=== PATIENT | male | born 1940 | race Caucasian/White ===

== ENCOUNTER → 2018-08-13 | Outpatient (CLI) | payer OTHER ==
[~2018-08-13] MED LIST: CARDIZEM CD240 MG PO; COUMADIN 5 MG TA5 M1 PO
--- NOTE | 2018-08-13 14:39 | 2DMMODE ---
[facility] [address] [place] [address] 2 D/M-MODE ECHOCARDIOGRAM Name: CARISSAEVERETTE ANANDUR Room #: REG [facility]#: [id number] ������������� Admission: 08/13/18 ������������� Attend Phys: Xiang Suero Discharge: ��� ������������� ��� Date of : 44 Date of Service: 08/13/18 1438 �� Report #: [id number] �������� ��������������������������������������������[id number] THIS REPORT FOR: //name// APPROVED REPORT Study performed: 08/13/2018 13:19:23 EXAM: Comprehensive 2D, Doppler, and color-flow Echocardiogram Patient Location: Out-Patient Status: routine BSA: 1.91 HR: 60 bpm BP: 140/78 mmHg Other Information Study Quality: Adequate Indications Atrial Fibrillation SSS, pacemaker 2D Dimensions RVDd: 34.48 mm IVSd: 10.13 (7-11mm) LVOT Diam: 25.05 (18-24mm) LVDd: 55.23 mm PWd: 9.30 (7-11mm) Ascending Ao: 32.76 (22-36mm) LVDs: 38.15 (25-40mm) Aortic Root: 35.21 mm Volumes Left Atrial Volume (Systole) Single Plane 4CH: 56.90 mL Single Plane 2CH: 27.19 mL LA ESV Index: 21.00 mL/m2 Aortic Valve AoV Peak Charles.: 0.88 m/s AO Peak Gr.: 3.11 mmHg LVOT Max P.83 mmHg LVOT Max V: 0.68 m/s LUCIE Vmax: 3.78 cm2 AI Vmax: 4.57 m/s AI [place]: 1.52 m/s2 AI PHT: 869.25 ms Mitral Valve [facility] [address] [place] [address] 2 D/M-MODE ECHOCARDIOGRAM Name: EVERETTE FERRER Room #: [facility]#: [id number] ������������� Admission: 08/13/18 ������������� Attend Phys: [facility] Discharge: ��� ������������� ��� Date of : 44 Date of Service: 08/13/18 1438 �� Report #: [id number] �������� ��������������������������������������������[id number] E/A Ratio: 0.6 MV Decel. Time: 243.61 ms MV E Max Charles.: 0.42 m/s MV A Charles.: 0.71 m/s MV PHT: 70.65 ms IVRT: 115.34 ms Pulmonary Valve PV Peak Charles.: 1.04 m/s PV Peak Gr.: 4.34 mmHg Pulmonary Vein P Vein S: 0.45 m/s P Vein A: 0.33 m/s P Vein D: 0.29 m/s P Vein A Dur.: 152.2 msec P Vein S/D Ratio: 1.55 Tricuspid Valve TR Peak Charles.: 2.33 m/s TR Peak Gr.: 21.73 mmHg Left Ventricle The left ventricle is normal size. There is normal left ventricular wall thickness. The left ventricular systolic function is normal. The left ventricular ejection fraction is within the normal range. LVEF is 55%. Mild diastolic dysfunction is present (impaired relaxation pattern). Right Ventricle The right ventricle is normal size. The right ventricular systolic function is normal. Atria The left atrium size is normal. The right atrium size is normal. A pacemaker is seen in the right atrium consistent with history. Aortic Valve The aortic valve is normal in structure. Mild to moderate aortic regurgitation. There is no aortic valvular stenosis. Mitral Valve The mitral valve is normal in structure. Trace to mild mitral regurgitation. No evidence of mitral valve stenosis. Tricuspid Valve The tricuspid valve is normal in structure. Mild tricuspid regurgitation. PAP is estimated at 22 mmHg + estimated RA [facility] [address] [place] [address] 2 D/M-MODE ECHOCARDIOGRAM Name: EVERETTE FERRER AMY Room #: REG [facility]#: [id number] ������������� Admission: 08/13/18 ������������� Attend Phys: [facility] Discharge: ��� ������������� ��� Date of : 44 Date of Service: 08/13/18 1438 �� Report #: [id number] �������� ��������������������������������������������[id number] pressure. Pulmonic Valve The pulmonary valve is normal in structure. Trace pulmonic regurgitation. Great Vessels The aortic root is normal in size. IVC is not visualized. Pericardium There is no pericardial effusion. <Conclusion> The left ventricle is normal size. There is normal left ventricular wall thickness. The left ventricular systolic function is normal. The left ventricular ejection fraction is within the normal range. LVEF is 55%. The aortic valve is normal in structure. Mild to moderate aortic regurgitation. There is no aortic valvular stenosis. There is no pericardial effusion. ��������������������������������������������� <ELECTRONICALLY SIGNED> ���������������������������������������� By: Xiang Suero MD ��������������������������������������������� 08/13/18 1438 1438 1438 Xiang Suero MD /INF
== END ==
LOC: CV 06:56
DX: I08.2 Rheumatic disorders of both aortic and tricuspid valves (principal); I48.91 Unspecified atrial fibrillation; Z95.0 Presence of cardiac pacemaker

== ENCOUNTER → 2019-08-17 | Outpatient (CLI) | payer OTHER | LOC: SJCVC 13:28 | DX: R94.31 Abnormal electrocardiogram [ECG] [EKG] (principal); I48.0 Paroxysmal atrial fibrillation; I48.3 Typical atrial flutter; I49.5 Sick sinus syndrome; Z95.0 Presence of cardiac pacemaker ==

== ENCOUNTER → 2019-08-17 | Outpatient (CLI) | payer OTHER ==
--- NOTE | 2019-08-17 13:41 | 2DMMODE ---
[facility] [place] [address] 2 D/M-MODE ECHOCARDIOGRAM Name: EVERETTE FERRER Room #: REG [facility].#: [id number] Admission: 08/17/19 Attend Phys: Xiang Suero MD Discharge: Date of : 44 Report #: [id number] THIS REPORT FOR: cc: Gilbert Fuentes MD,Gilbert Barnes,Shiva Mobley MD [facility] ~ APPROVED REPORT Study performed: 08/17/2019 12:54:15 EXAM: Comprehensive 2D, Doppler, and color-flow Echocardiogram Patient Location: Out-Patient Status: routine BSA: 1.91 HR: 65 bpm BP: 140/78 mmHg Rhythm: NSR Indications Pacemaker. 2D Dimensions RVDd: 35.33 mm IVSd: 10.00 (7-11mm) LVOT Diam: 23.00 (18-24mm) LVDd: 57.00 mm PWd: 10.00 (7-11mm) Ascending Ao: 36.00 (22-36mm) LVDs: 41.00 (25-40mm) Aortic Root: 37.38 mm Volumes Left Atrial Volume (Systole) Single Plane 4CH: 51.21 mL Single Plane 2CH: 44.19 mL LA ESV Index: 27.00 mL/m2 Aortic Valve AoV Peak Charles.: 1.20 m/s AO Peak Gr.: 5.75 mmHg LVOT Max P.37 mmHg LVOT Max V: 0.77 m/s LUCIE Vmax: 2.65 cm2 AI Vmax: 4.86 m/s AI [place]: 2.00 m/s2 AI PHT: 711.14 ms [facility] [address] [place] [address] 2 D/M-MODE ECHOCARDIOGRAM Name: CARISSAEVERETTE REYES Room #: REG [facility]#: [id number] Admission: 08/17/19 Attend Phys: Xiang Suero Discharge: Date of : 44 Report #: [id number] Mitral Valve IVRT: 110.73 ms Pulmonary Valve PV Peak Charles.: 0.97 m/s PV Peak Gr.: 3.75 mmHg Pulmonary Vein P Vein S: 0.42 m/s P Vein A: 0.31 m/s P Vein D: 0.25 m/s P Vein A Dur.: 143.0 msec P Vein S/D Ratio: 1.68 Tricuspid Valve TR Peak Charles.: 2.45 m/s RAP Estimate: 5.00 mmHg TR Peak Gr.: 24.00 mmHg PA Pressure: 29.00 mmHg Left Ventricle Left ventricle is at the upper limits of normal. There is normal LV segmental wall motion. There is normal left ventricular wall thickness. The left ventricular systolic function is normal. LVEF is 55-60%. Mild diastolic dysfunction is present (impaired relaxation pattern). Right Ventricle The right ventricle is normal size. The right ventricular systolic function is normal. Atria The left atrium size is normal. The right atrium size is normal. Aortic Valve The aortic valve is mildly calcified. Mild to moderate aortic regurgitation. There is no aortic valvular stenosis. Mitral Valve The mitral valve is normal in structure. Mild mitral regurgitation. No evidence of mitral valve stenosis. Tricuspid Valve The tricuspid valve is normal in structure. Mild to moderate tricuspid regurgitation. Estimated PAP is 30mmHg Pulmonic Valve The pulmonary valve is normal in structure. Mild pulmonic regurgitation. [facility] [employer] [place] [address] 2 D/M-MODE ECHOCARDIOGRAM Name: EVERETTE FERRER Room #: REG [facility]#: [id number] Admission: 08/17/19 Attend Phys: Xiang Suero Discharge: Date of : 44 Report #: [id number] Great Vessels The aortic root is normal in size. The ascending aorta is normal in size. IVC is not well visualized. Pericardium There is no pericardial effusion. <Conclusion> The left ventricular systolic function is normal. There is normal LV segmental wall motion. LVEF is 55-60%. Mild diastolic dysfunction Pacing wires in right heart. The aortic valve is mildly calcified. Mild to moderate aortic regurgitation, no stenosis. The mitral valve is normal in structure. Mild mitral regurgitation. Mild to moderate tricuspid regurgitation. Estimated pulmonary artery pressure of 30mmHg There is no pericardial effusion. <ELECTRONICALLY SIGNED> By: Shiva Barnes MD, FACC 08/17/19 1340 134 39 Shiva Barnes MD, FAC /INF
== END ==
LOC: CV 08:16
DX: I08.8 Other rheumatic multiple valve diseases (principal); I49.5 Sick sinus syndrome

== ENCOUNTER → 2020-02-16 | Outpatient (CLI) | payer OTHER | LOC: SJCVC 13:35 | PROVIDERS: ATTEND Internal Medicine Cardiovascular Disease | DX: Z45.018 Encounter for adjustment and management of other part of cardiac pacemaker (principal); I49.5 Sick sinus syndrome; R94.31 Abnormal electrocardiogram [ECG] [EKG]; I48.91 Unspecified atrial fibrillation; Z82.49 Family history of ischemic heart disease and other diseases of the circulatory system ==

== ENCOUNTER → 2020-08-15 | Outpatient (CLI) | payer OTHER | LOC: SJCVC 12:56 | PROVIDERS: ATTEND Internal Medicine Cardiovascular Disease | DX: I48.91 Unspecified atrial fibrillation (principal); I49.5 Sick sinus syndrome; I48.3 Typical atrial flutter; Z95.0 Presence of cardiac pacemaker; Z79.899 Other long term (current) drug therapy; Z88.8 Allergy status to other drugs, medicaments and biological substances ==